=== PATIENT | female | born 2005 | race Caucasian/White ===

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

== ENCOUNTER → 2024-02-20 | Outpatient (CLI) | payer OTHER ==
[2024-02-20 20:20] LABS: Bacterial Vaginosis PCR Negative (NEGATIVE); Candida Group, PCR NOT DETECTED (NOT DETECT); Candida glabrata-krusei, PCR NOT DETECTED (NOT DETECT)
== END | disposition home or self-care (01) ==
LOC: LAB SHORT 16:53 → LAB 16:53
PROVIDERS: Family Medicine
DX: N94.10 Unspecified dyspareunia (principal)
CPT/HCPCS: 87481; 87661; 87801

== ENCOUNTER → 2024-03-28 | Outpatient (CLI) | payer OTHER | END | disposition home or self-care (01) | LOC: LAB SHORT 09:05 → LAB 09:05 | DX: N39.0 Urinary tract infection, site not specified (principal) | CPT/HCPCS: 87077; 87086; 87186 ==

== ENCOUNTER → 2024-04-29 | Outpatient (CLI) | payer OTHER | END | disposition home or self-care (01) | LOC: LAB 15:17 → LAB SHORT 15:17 | DX: R30.0 Dysuria (principal) | CPT/HCPCS: 87077; 87086; 87186 ==

== ENCOUNTER → 2024-10-25 | Outpatient (CLI) | payer OTHER | END | disposition home or self-care (01) | LOC: LAB SHORT 12:27 → LAB 12:27 | DX: N39.0 Urinary tract infection, site not specified (principal) | CPT/HCPCS: 87077; 87086; 87186 ==

== ENCOUNTER → 2025-02-14 | Outpatient (CLI) | payer OTHER ==
[2025-02-14 18:59] LABS: Bacterial Vaginosis PCR Negative (NEGATIVE); Candida glabrata-krusei, PCR NOT DETECTED (NOT DETECT)
[2025-02-15 00:13] LABS: Candida Group, PCR DETECTED (NOT DETECT)
== END ==
LOC: LAB SHORT 17:44 → LAB 17:44
PROVIDERS: Physician Assistant
DX: O23.40 Unspecified infection of urinary tract in pregnancy, unspecified trimester (principal); N39.0 Urinary tract infection, site not specified; Z3A.00 Weeks of gestation of pregnancy not specified
CPT/HCPCS: 81515; 87086

== ENCOUNTER → 2025-04-09 | Outpatient (CLI) | payer OTHER ==
[2025-04-09 16:27] LABS: Bacterial Vaginosis PCR Negative (NEGATIVE); Candida Group, PCR NOT DETECTED (NOT DETECT); Candida glabrata-krusei, PCR NOT DETECTED (NOT DETECT)
== END ==
LOC: LAB 14:01 → LAB SHORT 14:01
PROVIDERS: Obstetrics & Gynecology
DX: N76.0 Acute vaginitis (principal)
CPT/HCPCS: 81515

== ENCOUNTER → 2025-05-18 | Outpatient (CLI) | payer OTHER | LOC: LAB 16:21 → LAB SHORT 16:21 | DX: Z34.93 Encounter for supervision of normal pregnancy, unspecified, third trimester (principal) | CPT/HCPCS: 87081; 87150 ==

== ENCOUNTER 2025-06-13 08:31 | Inpatient (IN) | payer OTHER ==
[2025-06-13] VITALS (41 sets, daily range): BP systolic 96–166; BP diastolic 55–99
[~2025-06-13] VITALS: Ht 167.6 cm; Wt 105.0 kg
[2025-06-13] MEDS ORDERED: OXYTOCIN/RINGER'S LACTATE 500 ML IV PRN (10:25)
[2025-06-13] MEDS ORDERED: FentaNYL 2mcg/ml-Bup 0.1% Epd 250 ML EPI PRN (10:25)
[2025-06-13] MEDS ORDERED: ePHEDrine Sulfate 50 MG/ML 1ML Injection XX PRN (10:25)
[2025-06-13] MEDS ORDERED: Ondansetron HCl 2 MG / ML 2ML Vial IV PRN (10:25)
[2025-06-13] MEDS ORDERED: Carboprost Tromethamine 250 MCG/ML 1ML Amp IM PRN (10:25)
[2025-06-13] MEDS ORDERED: Oxytocin 10 Unit / ML Vial IM PRN (10:25)
[2025-06-13] MEDS ORDERED: Methylergonovine Maleate 0.2MG / ML 1ML Amp IM PRN (10:25)
[2025-06-13] MEDS ORDERED: Tranexamic Acid 100 ML IV SCH (10:25)
[2025-06-13] MEDS ORDERED: PRENATAL TABLE1 EAC2 PO (10:48)
[2025-06-13 10:54] LABS: BASOPHILS ABSOLUTE AUTO 0.04 K/mm3 (0.00-0.23); BASOPHILS PERCENT AUTO 0 % (0-2); EOSINOPHILS ABSOLUTE AUTO 0.03 K/mm3 (0.00-0.68); EOSINOPHILS PERCENT AUTO 0 % (0-6); Hematocrit 31.9 % (33.0-51.0); Hemoglobin 9.6 g/dL (11.5-16.0); IMMATURE GRAN ABSOLUTE AUTO 0.14 K/mm3 (0.00-0.10); IMMATURE GRAN PERCENT AUTO 1 % (0-1); LYMPHOCYTES ABSOLUTE AUTO 1.80 K/mm3 (0.84-5.20); LYMPHOCYTES PERCENT AUTO 14 % (21-46); MONOCYTES ABSOLUTE AUTO 0.74 K/mm3 (0.16-1.47); MONOCYTES PERCENT AUTO 6 % (4-13); Mean Corpuscular HGB Conc 30.1 g/dL (31.5-36.5); Mean Corpuscular Volume 70 fL (80-100); NEUTROPHILS ABSOLUTE AUTO 10.35 K/mm3 (1.96-9.15); NEUTROPHILS PERCENT AUTO 79 % (41-73); NRBC ABSOLUTE 0.02 K/mm3 (0.00-0.02); NRBC Auto 0.2 /100 WBC (0.0-0.2); Platelet Count 420 K/mm3 (150-400); RDW Coefficient Variation 17.2 % (11.7-14.2); RDW Standard Deviation 43.6 fL (35.1-46.3)
[2025-06-13] MEDS ORDERED: CeFAZolin Sodium 2,000 MG in NS 100 ML IV SCH (23:35)
[2025-06-13] MEDS ORDERED: Citric Acid/Sodium Citrate 30 ML BTL PO PRN (23:40)
[2025-06-13] MEDS ORDERED: Metoclopramide HCl 5MG / ML 2ML Vial IV PRN (23:40)
[2025-06-13] MEDS ORDERED: NS 500 ML IV PRN (23:50)
[2025-06-14] VITALS (13 sets, daily range): BP systolic 110–183; BP diastolic 60–96
[2025-06-14] MEDS ORDERED: Methylergonovine Maleate 0.2MG / ML 1ML Amp IM PRN (00:40)
[2025-06-14] MEDS ORDERED: Benzocaine Topical Anesthetic Spray 60GM TOP PRN (00:45)
[2025-06-14] MEDS ORDERED: Witch Hazel/Glycerin PADS TOP PRN (00:45)
[2025-06-14] MEDS ORDERED: Carboprost Tromethamine 250 MCG/ML 1ML Amp IM PRN (00:45)
[2025-06-14] MEDS ORDERED: Oxytocin 10 Unit / ML Vial IM ONE (00:50)
[2025-06-14] MEDS ORDERED: OXYTOCIN/RINGER'S LACTATE 500 ML IV SCH (00:50)
[2025-06-14] MEDS ORDERED: Ketorolac Tromethamine 30mg Vial IV SCH (06:00)
[2025-06-14] MEDS ORDERED: Prenatal Vit/FE Fumarate/FA 1 Tab PO SCH (09:00)
[2025-06-15 00:29] VITALS: BP 112/69
[2025-06-15 04:08] VITALS: BP 121/79
[2025-06-15 07:32] VITALS: BP 125/83
== END 2025-06-15 10:44 | disposition home or self-care (01) | DRG 807 ==
LOC: BC 08:31 → OBS 08:31 → BC 09:58 → OBS 10:01 → BC 10:02
PROVIDERS: ADMIT Advanced Practice Midwife
PROC: 10E0XZZ Delivery of Products of Conception, External Approach (ICD-10-PCS; principal; 2025-06-14)
PROC: 0UQMXZZ Repair Vulva, External Approach (ICD-10-PCS; 2025-06-14)
PROC: 3E0R3BZ Introduction of Anesthetic Agent into Spinal Canal, Percutaneous Approach (ICD-10-PCS; 2025-06-14)
PROC: 00HU33Z Insertion of Infusion Device into Spinal Canal, Percutaneous Approach (ICD-10-PCS; 2025-06-14)
DX: O99.344 Other mental disorders complicating childbirth (principal); Z37.0 Single live birth; Z3A.40 40 weeks gestation of pregnancy; F41.8 Other specified anxiety disorders; Z90.49 Acquired absence of other specified parts of digestive tract; Z90.89 Acquired absence of other organs; Z79.899 Other long term (current) drug therapy; N26.1 Atrophy of kidney (terminal); O99.892 Other specified diseases and conditions complicating childbirth; O70.0 First degree perineal laceration during delivery; O99.214 Obesity complicating childbirth; O48.0 Post-term pregnancy
CPT/HCPCS: 36415; 51702; 59025; 85025; 86850; 86900; 86901; 86923; 99214; A9270; J2590; J7120